=== PATIENT | male | born 1985 | race Caucasian/White ===

== ENCOUNTER 2024-04-15 10:33 | Emergency (ER) | payer OTHER ==
--- NOTE | 2024-04-15 10:40 | ED Physician Documentation ---
PD HPI DYSPNEA - Stated complaint Stated Complaint: BEE STING/SOA - History obtained from History obtained from: Patient - History of Present Illness Timing - onset: How many minutes ago (30), Today Timing - onset during: Light activity Timing - details: Abrupt onset Inciting event(s): Other (he was stung by bee on left side of neck, with feeling of local swelling, no general symptoms. After few minutes, noted some numbness left side of tongue. Normal voice and breathing. No hives.) PD PAST MEDICAL HISTORY - Present Medications Home Medications: Ambulatory Orders Medication Instructions Recorded Confirmed Cetirizine [ZyrTEC] 10 mg PO BID #10 tablet 04/15/24 dexAMETHasone [Decadron] 4 mg PO DAILY #5 tablet 04/15/24 - Allergies Allergies/Adverse Reactions: Allergies Allergy/AdvReac Type Severity Reaction Status Date / Time bee pollen Allergy Anaphylaxis Verified 04/15/24 10:45 Penicillins Allergy Hives Verified 04/15/24 10:45 Sulfa (Sulfonamide Allergy Hives Verified 04/15/24 10:46 Antibiotics) PD ED PE NORMAL - Vitals Vital signs reviewed: Yes - General General: Alert and oriented X 3, No acute distress, Well developed/nourished - HEENT HEENT: Atraumatic, Pharynx benign - Neck Neck: Supple, no meningeal sign, No adenopathy, Other (left lateral neck with local redness and swelling mild to moderate c/w bee sting. No FB. Normal phonation and swallowing. ) - Cardiac Cardiac: RRR, No murmur - Respiratory Respiratory: No respiratory distress, Clear bilaterally - Derm Derm: Normal color, Warm and dry, No rash Results - Vitals Vitals: Oxygen O2 Source Room air PD Medical Decision Making - ED course Complexity details: re-evaluated patient (patient given Benadryl and decadron. He was not clearly having anaphylactic reaction with more likely having some inflammation around recurrent laryngeal nerve. He preferred not having epi. Watched 2 hours without any worsening, and the tongue numb was decreasing. ), considered differential (stung on side of neck once with local itching and swelling. Developed numbness on side of tongue shortly after and slightly under the chin. No trouble breathing nor swallowing. No gnerealized itching. ), d/w patient ED course: he has Rx epipen but it was back at home and not carrying with him here. Obviously I urged him to have it with him always, and the fall is when bees can be a bit more aggressive. Departure - Departure Disposition: 01 Home, Self Care Clinical Impression: Bee sting reaction, Numbness of tongue Condition: Stable Record reviewed to determine appropriate education?: Yes Instructions: ED Bite Sting Insect Gen Allergic React Prescriptions: dexAMETHasone [Decadron] 4 mg PO DAILY #5 tablet Cetirizine [ZyrTEC] 10 mg PO BID #10 tablet Comments: Your symptoms have not increased here in you state are improving slightly. Timing has been long enough that I think it would be worsening significantly if it was going to. Commonly would suggest continuing with some antihistamines and steroid for several days as the effect of a bee sting venom can last for a few days to some degree. I was not able to send the prescription to your pharmacy in [place] so I printed it out on paper. Return or recheck if you have notably increasing symptoms later in the day. Try to stay cool and not to do any exertional activity as increased blood flow through the skin can increase symptoms. The numbness you experienced in the feeling of slight swelling in the tongue and lip on that side may not be part of a allergic reaction per se but could be a local effect from the bee sting on your neck affecting the nerve up to the side of the tongue (recurrent laryngeal nerve). It would still be prudent to continue with some antihistamine and steroid for few days anyway. You have your EpiPen at home in case for more significant reaction. Obviously it would make sense to have it with you at all times. Forms: PCP List Discharge Date/Time: 04/15/24 12:37
[2024-04-15] MEDS: dexAMETHasone 4 MG TABLET PO STA (10:58)
[2024-04-15] MEDS: diphenhydrAMINE INJ 50 MG/ML VIAL IM STA (11:00)
[2024-04-15] MEDS: CETIRIZINE 10 MG TABLET PO STA (12:28)
[2024-04-15 12:30] VITALS: BP 140/86; O2SAT 96
== END 2024-04-15 12:37 | disposition home or self-care (01) ==
LOC: ED 10:33
DX: T63.441A Toxic effect of venom of bees, accidental (unintentional), initial encounter (principal); Z91.030 Bee allergy status
CPT/HCPCS: 96372; 99283; A9270; J1200; J8540